=== PATIENT | female | born 1980 | race Caucasian/White ===

== ENCOUNTER 2017-04-16 11:01 | Emergency (ER) | payer BC ==
[~2017-04-16] VITALS: Ht 160 cm; Wt 65.8 kg
[2017-04-16 11:07] VITALS: BP_SYST 115
[2017-04-16 11:26] LABS: BILIRUBIN,URINE NEGATIVE (NEGATIVE); BLOOD, URINE NEGATIVE (NEGATIVE); CLARITY/URINE CLEAR (CLEAR); COLOR,URINE YELLOW (YELLOW); GLUCOSE,URINE NEGATIVE (NEGATIVE); KETONES,URINE NEGATIVE (NEGATIVE); LEUKOCYTE ESTERASE ,URINE NEGATIVE (NEGATIVE); NITRITE, URINE NEGATIVE (NEGATIVE); PH,URINE 5.5 (5.0-8.0); PROTEIN URINE NEGATIVE (NEGATIVE); UROBILINOGEN,URINE 0.2 (0.2-1.0)
[2017-04-16 12:13] VITALS: BP_SYST 110
== END 2017-04-16 12:09 | disposition home or self-care (01) ==
LOC: SED 11:01
DX: R30.0 Dysuria (principal); Z88.1 Allergy status to other antibiotic agents
CPT/HCPCS: 81003; 81025; 99283